=== PATIENT | female | born 1970 | race African-American/Black ===

== ENCOUNTER 2016-06-18 16:44 | Emergency (ER) | payer OTHER ==
[~2016-06-18] VITALS: Ht 177.8 cm; Wt 82.1 kg
--- NOTE | ~2016-06-18 | EKG ---
[place] [address] [facility] [place] [address] ELECTROCARDIOGRAM REPORT Name: ROLANDOCEFERINO L Room #: [place]#: [id number] Admission: 06/18/16 Attend Phys: Discharge: 06/18/16 Date of : 72 Report #: [id number] THIS REPORT FOR: //name// [facility] ED Test Date: 2016-06-18 Test Time: 17:10:56 Pat Name: CEFERINO MARSHALL Department: Room: Gender: F Milling/Polishing Operator: melia : 1970 Requested By: Juancarlos Pfeiffer Order Number: [id number] MD: Job Guadarrama Measurements Intervals [place] Rate: 90 P: 30 WA: 186 QRS: 32 QRSD: 89 T: 20 QT: 368 QTc: 451 Interpretive Statements Sinus rhythm Left ventricular hypertrophy Baseline wander in lead(s) V2 No previous ECG available for comparison Electronically Signed On 06-19-2016 7:38:56 [employer]ARE WORKER by Job Guadarrama [email or web address] <ELECTRONICALLY SIGNED> By: Job Guadarrama MD, [facility] 06/19/16 0738 1710 1710 Job Guadarrama MD, FACC /EPI
[2016-06-18] MEDS ORDERED: ESCITALOPRAM OX20 MG PO (17:23)
[2016-06-18 17:24] LABS: BASOPHILS 0.6 % (0.0-2.0); EOSINOPHILS 0.5 % (0.0-3.0); HEMATOCRIT 35.8 % (37.0-47.0); HEMOGLOBIN 12.3 gm/dL (12.0-15.0); LYMPHOCYTES 51.3 % (24.0-44.0); MCH 26.7 pg (26.0-34.0); MCHC 34.2 % (28.0-37.0); PLATELET COUNT 180 thou/uL (150-400); POLYS 37.6 % (36.0-66.0); RBC 4.59 mil/uL (4.20-5.00); RDW 15.7 % (10.5-14.5); WBC 5.4 thou/uL (4.0-11.0)
[2016-06-18 17:28] LABS: MANUAL DIFF NO
[2016-06-18 17:31] LABS: URINE BILIRUBIN NEGATIVE (Negative); URINE BLOOD 1+ (Negative); URINE COLOR YELLOW; URINE GLUCOSE-RANDOM* NEGATIVE (Negative); URINE KETONES NEGATIVE (Negative); URINE NITRITE NEGATIVE (Negative); URINE PROTEIN (DIPSTICK) NEGATIVE (Negative); URINE SPECIFIC GRAVITY 1.025 (1.003-1.035)
[2016-06-18 17:35] LABS: CALCIUM 9.1 mg/dL (8.5-10.1); CREATININE 0.5 mg/dL (0.6-1.3); POTASSIUM 3.7 mmol/L (3.5-5.1); TOTAL BILIRUBIN 0.8 mg/dL (<0.1-1.0)
[2016-06-18 17:36] LABS: ALBUMIN 3.8 g/dL (3.4-5.0); TOTAL PROTEIN 7.5 g/dL (6.4-8.2)
[2016-06-18 17:58] LABS: BACTERIA 1-9 Few /HPF (None Seen); CASTS None Seen /LPF (None Seen); CRYSTALS None Seen /LPF (None Seen); SQUAMOUS 4-10 Moderate /LPF (0-3); URINE RBC >20 Many /HPF (0-2); URINE WBC None Seen /HPF (0-5)
[2016-06-18 18:35] VITALS: BP 153/67
== END 2016-06-18 18:36 | disposition home or self-care (01) ==
LOC: ER 16:44
PROVIDERS: Physician Assistant
DX: J01.80 Other acute sinusitis (principal); R42 Dizziness and giddiness; E03.9 Hypothyroidism, unspecified; F41.9 Anxiety disorder, unspecified; Z98.890 Other specified postprocedural states; Z88.2 Allergy status to sulfonamides; F17.210 Nicotine dependence, cigarettes, uncomplicated; F10.99 Alcohol use, unspecified with unspecified alcohol-induced disorder; F12.10 Cannabis abuse, uncomplicated